=== PATIENT | male | born 1965 | race African-American/Black ===

== ENCOUNTER 2019-03-06 16:58 | Emergency (ER) | payer BC ==
[~2019-03-06] VITALS: Ht 193 cm; Wt 97.5 kg
[2019-03-06 17:07] VITALS: BP 132/69
--- NOTE | 2019-03-06 22:00 | Emergency Room Report ---
History of Present Illness General Chief Complaint: Upper Respiratory Illness Source: Patient Present Illness HPI This patient left prior to evaluation by medical provider. Allergies: Coded Allergies: No Known Allergies (Unverified , 03/06/19) Nursing Documentation-[facility] Past Medical History: No Stated History Physical Exam Vital Signs Date Time Temp Pulse Resp B/P (MAP) Pulse Ox O2 Delivery O2 Flow Rate FiO2 03/06/19 17:05 98.8 99 18 132/69 (90) 94 Room Air Medical Decision Making PA Attestation Dr. Aleman is my supervising Physician whom patient management has been discussed with. ER Course This patient left prior to evaluation by medical provider. Last Vital Signs Date Time Temp Pulse Resp B/P (MAP) Pulse Ox O2 Delivery O2 Flow Rate FiO2 03/06/19 17:07 98.8 98 18 132/69 94 Room Air Disposition: AGAINST MEDICAL ADVICE Condition: Unknown Referrals: NOT CHOSEN IPA/,REFERRING (PCP) Yisel Manzano Mar 06, 2019 22:00
== END 2019-03-06 17:50 | disposition left against medical advice (07) ==
LOC: EMR 17:49
DX: Z53.21 Procedure and treatment not carried out due to patient leaving prior to being seen by health care provider (principal)